=== PATIENT | female | born 1945 | race Caucasian/White ===

== ENCOUNTER 2019-11-15 12:35 | Emergency (ER) | payer MEDICARE, SELFPAY ==
--- NOTE | ~2019-11-15 | XR_ITS ---
EXAMINATION: XR wrist RT min 3V DATE: 11/15/2019 13:04 INDICATION: Right wrist pain TECHNIQUE: Posteroanterior, ulnar deviation, oblique, and lateral views of the right wrist were obtai karin. 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 There appears be mild widening of the scapholunate interval whi ch suggests insufficiency the scapholunate ligament however there is no associated dorsal intercalate d segment instability (DISI). No fracture. Joint spaces appear relatively preserved. No erosions or p eriosteal reaction. IMPRESSION: 1. 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 Reviewed, dictated and finalized at location A. IMPRESSION: 1. 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
[2019-11-15 12:49] VITALS: BP 132/61; PULSE 80; RESP 14; TEMP 36.5; O2SAT 98
--- NOTE | 2019-11-15 12:54 | ED.GENADULT ---
HPI - General Adult General Chief complaint: Extremity Injury, Upper Stated complaint: R wrist injury Time Seen by Provider: 11/15/19 12:45 Mode of arrival: ambulatory Limitations: no limitations History of Present Illness HPI narrative: Patient is a 74-year-old female who presents to emergency department for evaluation of tender swollen left wrist noting that she did lots of vacuuming working in the yard over the last 2 days followed by moderate aching pain to the left wrist joint dorsal surface patient notes aching pain with any activity or movement. Pain radiates to the elbow at times. Patient denies other injury or trauma or similar occurrence and has not taken anything for some Related Data Home Medications Medication Instructions Recorded Confirmed hydrochlorothiazide 25 mg PO DAILY 11/15/19 metoprolol succinate 50 mg PO DAILY 11/15/19 Allergies Allergy/AdvReac Type Severity Reaction Status Date / Time atorvastatin Allergy Unknown Verified 01/30/17 15:44 Review of Systems Review of Systems: All systems reviewed & are unremarkable except as noted in HPI and below PMFSH Family History Family History (Updated 02/25/14 @ 10:16 by DOCTOR UNKNOWN) Father Cerebrovascular accident Family history of chronic obstructive pulmonary disease Family history of renal failure Family history of congestive heart failure Other Carcinoma of colon Social History Social History Smoking status: Never smoker Alcohol intake: never Exam Narrative: Exam Narrative: GENERAL: Well-appearing, well-nourished, and in no acute distress. HEAD: Normocephalic, atraumatic. EYES: PERRLA and EOMI. ENT: Nares clear, no rhinorrhea or epistaxis. Mucous membranes moist. EXTREMITIES: Slight redness and tenderness over the dorsal surface of the right wrist radial aspect wrist without other abnormalities or tenderness SKIN: Warm, dry, no rash. NEURO: No focal deficits. Alert and oriented x3. Neurovascularly intact. Capillary refill less than 2 seconds PSYCH: Normal mood and affect. Course Course Emergency Course: Patient in the room aware of case findings treatment plan and diagnosis agreeing to follow-up with primary care also provided with orthopedic follow-up. Patient hydrated in the emergency department and given anti-inflammatory Vital Signs Vital signs: Vital Signs Temperature 97.7 F 11/15/19 12:49 Pulse Rate 80 11/15/19 12:49 Respiratory Rate 14 11/15/19 12:49 Blood Pressure 132/61 11/15/19 12:49 Pulse Oximetry 98 11/15/19 12:49 Temperature 97.7 F 11/15/19 12:49 Pulse Rate 80 11/15/19 12:49 Respiratory Rate 14 11/15/19 12:49 Blood Pressure 132/61 11/15/19 12:49 Pulse Oximetry 98 11/15/19 12:49 Medical Decision Making MDM Narrative Medical decision making narrative: Patients injury or pain is consistent with musculoskeletal etiology. No signs of neurological or vascular compromise on exam. Compartments and tisues are soft without signs of compartment syndrome. Pain is felt appropriate for further evaluation on an outpatient basis. Patient with likely inflammatory arthropathy placed in thumb spica splint advised to rest elevate and ice the extremity provided with reasons to return will be placed on anti-inflammatories. Afebrile nontoxic-appearing no distress Vital Signs Vital Signs: Vital Signs Temperature 97.7 F 11/15/19 12:49 Pulse Rate 80 11/15/19 12:49 Respiratory Rate 14 11/15/19 12:49 Blood Pressure 132/61 11/15/19 12:49 Pulse Oximetry 98 11/15/19 12:49 Temperature 97.7 F 11/15/19 12:49 Pulse Rate 80 11/15/19 12:49 Respiratory Rate 14 11/15/19 12:49 Blood Pressure 132/61 11/15/19 12:49 Pulse Oximetry 98 11/15/19 12:49 Lab Data Result diagrams: 11/15/19 13:23 11/15/19 13:23 Labs: Lab Results 11/15/19 11/15/19 Range/Units 13:23 13:23 WBC
[2019-11-15] MEDS: SODIUM CHLORIDE 0.9% IV 1,000 ML 999 ML IV CONT (13:24)
[2019-11-15] MEDS: KETOROLAC 15 MG/ML VIAL (*BKC) IV PUSH (13:25)
[2019-11-15 13:33] LABS: Basophils Percent Auto 0.3 % (0.2-1.2); Eosinophils Absolute Auto 0.1 K/mm3 (0-0.3); Eosinophils Percent Auto 1.1 % (0-4.4); Hematocrit 39.2 % (37.0-47.0); Hemoglobin 12.6 g/dL (12.0-15.0); Immature Granulocyte Absolute 0.04 K/mm3 (0.00-0.031); Immature Granulocyte Percent A 0.4 % (0-0.5); Lymphocytes Percent Auto 14.3 % (18.3-44.2); Mean Corpuscular HGB Conc 32.1 g/dl (32-36); Mean Corpuscular Hemoglobin 30.3 pg (26-34); Mean Corpuscular Volume 94.2 fl (80-100); Mean Platelet Volume 9.4 fl (7.4-10.4); Monocytes Absolute Auto 0.8 K/mm3 (0.1-0.6); Neutrophils Absolute Auto 8.6 K/mm3 (1.3-6.7); Neutrophils Percent Auto 76.9 % (45.5-73.1); Platelet Count Result 358 k/mm3 (150-375); Red Blood Count 4.16 M/mm3 (4.2-5.4); Red Cell Distribution Width 12.3 % (11.5-14.5); White Blood Count 11.2 K/mm3 (4.5-10.0)
[2019-11-15 13:46] LABS: Blood Urea Nitrogen 18 mg/dL (7-17); CRP 1.7 mg/dL (<1.0); Calcium 9.3 mg/dL (8.4-10.2); Carbon Dioxide 30 mmol/L (22-30); Chloride 99 mmol/L (98-107); Estimated CRCL calculation 54 ml/min; Estimated Glomerular Filt Rate > 60; Glucose 156 mg/dL (65-105); Potassium 3.6 mmol/L (3.4-5.0); Sodium 138 mmol/L (137-145); Uric Acid 4.3 mg/dL (2.5-7.5)
[2019-11-15 13:56] LABS: Erythrocyte Sedimentation Rate 53 mm/hr (0-20)
[2019-11-15 15:13] VITALS: BP 130/70; PULSE 78; RESP 12; O2SAT 99
== END 2019-11-15 15:14 | disposition home or self-care (01) ==
PROVIDERS: Emergency Medicine Emergency Medical Services; Emergency Provider Emergency Medicine; PCP Nurse Practitioner Adult Health
DX: M25.531 Pain in right wrist (principal); M11.231 Other chondrocalcinosis, right wrist
CPT/HCPCS: 29125; 36415; 73110; 80048; 84550; 85025; 85652; 86140; 96361; 96374; 99284; J1885; J7030

== ENCOUNTER → 2020-06-12 03:07 | Outpatient (CLI) | payer MEDICARE, SELFPAY ==
[2020-06-12 18:10] LABS: SARS-CoV-2 RNA PCR Negative
== END ==
PROVIDERS: PCP Nurse Practitioner Adult Health; Visit Provider Internal Medicine Gastroenterology
DX: Z01.812 Encounter for preprocedural laboratory examination (principal); Z20.822 Contact with and (suspected) exposure to COVID-19
CPT/HCPCS: C9803; U0003; U0005

== ENCOUNTER 2020-06-15 02:16 | Day surgery (SDC) | payer MEDICARE, SELFPAY ==
[2020-06-10 11:21] VITALS: BMI 26.4
[2020-06-15 07:33] VITALS: BP 139/66; PULSE 70; RESP 16; TEMP 36; O2SAT 99; BMI 26.2
[2020-06-15] MEDS: LACTATED RINGERS 1,000 ML 150 ML IV CONT (07:46)
--- NOTE | 2020-06-15 07:56 | WPDGICN ---
Assessment and Plan Assessment and plan (1) Occult blood in stools: Code(s): R19.5 - Other fecal abnormalities Status: Acute Assessment and Plan: Patient had occult blood in stool on routine screening. Plan is for colonoscopy to assess for possible colon polyps or other pathology in the colon. Further recommendations after endoscopy. GI Consult Note Consult date/time: 06/15/20 07:56 HPI: Jeanne Acevedo is a 74 year old female Presents for screening colonoscopy. Patient had an outpatient FIT test. It was found to be positive for occult blood in stool. Patient denies any obvious blood in her stools. She denies abdominal pain. Her bowel habits are normal. She has seen no visible blood. Patient's family history is noncontributory. Patient denies any prior history of colon disease in the family. Review of Systems Review of Systems: All systems reviewed & are unremarkable except as noted in HPI and below [facility] Family History Family History (Updated 02/25/14 @ 10:16 by DOCTOR UNKNOWN) Father Cerebrovascular accident Family history of chronic obstructive pulmonary disease Family history of renal failure Family history of congestive heart failure Other Carcinoma of colon Social History Social History Smoking status: Never smoker Alcohol intake: never Substance use: never Substance use type: does not use Living arrangements: with family Spiritual care concerns: No Meds Home Medications and Allergies Home Medications Medication Instructions Recorded Confirmed Type hydrochlorothiazide 25 mg PO DAILY 11/15/19 06/10/20 History metoprolol succinate 50 mg PO DAILY 11/15/19 06/10/20 History sodium,potassium,mag sulfates 17.5 See Rx Instructions PO .COMPLEX 06/09/20 Rx gram-3.13 gram-1.6 gram oral soln #354 ml Allergies Allergy/AdvReac Type Severity Reaction Status Date / Time atorvastatin Allergy Unknown Dizziness Verified 06/15/20 07:32 Vital Signs Vital Signs - 24 hr 06/15/20 07:33 Temperature 96.8 F L Pulse Rate 70 Respiratory Rate 16 Blood Pressure 139/66 Pulse Oximetry 99 Exam Narrative: Exam Narrative: Physical exam reveals patient to be alert. Vital signs stable. HEENT exam unremarkable. Patient is anicteric. Lungs are clear to auscultation and percussion. Heart is without murmur or extra sounds. Abdominal exam bowel sounds are present soft nontender with no organomegaly. Digital external rectal exam is normal.
--- NOTE | 2020-06-15 08:21 | WPDANESEPPF ---
Anes - Initial Pre Proc Eval Procedure: Operation Date: 06/15/20 09:00 Proposed Procedures p Colonoscopy - Clem Ren MD Date/Time: 06/15/20 08:21 Surgeon: Clem Ren MD Pre Op Diagnosis: Occult GI Bleeding Patient Data Age: 74 Gender: F Height: 1.63 m Weight: 69.3 kg Last Vital Signs Temp 36.0 C L 06/15/20 07:33 Pulse 70 06/15/20 07:33 Resp 16 06/15/20 07:33 BP 139/66 06/15/20 07:33 Pulse Ox 99 06/15/20 07:33 Allergies Allergy/AdvReac Type Severity Reaction Status Date / Time atorvastatin Allergy Unknown Dizziness Verified 06/15/20 07:32 Home Medications Medication Instructions Recorded Confirmed Type hydrochlorothiazide 25 mg PO DAILY 11/15/19 06/10/20 History metoprolol succinate 50 mg PO DAILY 11/15/19 06/10/20 History sodium,potassium,mag sulfates 17.5 See Rx Instructions PO .COMPLEX 06/09/20 Rx gram-3.13 gram-1.6 gram oral soln #354 ml Patient hx anesthesia problems: none Family hx anesthesia problems: none PMFSH Past Medical History Medical History (Updated 06/15/20 @ 08:24 by Aldo Sims MD) HTN (hypertension) Family History Family History (Updated 02/25/14 @ 10:16 by DOCTOR UNKNOWN) Father Cerebrovascular accident Family history of chronic obstructive pulmonary disease Family history of renal failure Family history of congestive heart failure Other Carcinoma of colon Social History Social History Smoking status: Never smoker Alcohol intake: never Substance use: never Substance use type: does not use Living arrangements: with family Spiritual care concerns: No Anes - Eval Final PreProcedure Day of Procedure 06/15/20 08:21 Patient weight: overweight Heart: regular rate and rhythm Lungs: clear to auscultation and normal air movement Airway: Mallampati scale class II Neurological: alert and oriented Last oral intake: >/= 8 hours ASA classification: II Emergent: no Anesthetic plan: proceed Anesthesia type and monitoring: general GIVS Informed Consent: The patient's anesthetic plan and its attendant risks and benefits were discussed with the patient/family/POA. Questions were solicited and answers provided to the satisfaction of the patient/family/POA.
[2020-06-15 08:46] VITALS: BP 89/47; PULSE 53; RESP 16; O2SAT 97
[2020-06-15 08:56] VITALS: BP 90/50; PULSE 57; RESP 15; O2SAT 100
[2020-06-15 09:06] VITALS: BP 110/60; PULSE 62; RESP 18; O2SAT 100
== END 2020-06-15 09:16 | disposition home or self-care (01) ==
PROVIDERS: PCP Nurse Practitioner Adult Health; Visit Provider Internal Medicine Gastroenterology
PROC: 0DJD8ZZ Inspection of Lower Intestinal Tract, Via Natural or Artificial Opening Endoscopic (ICD-10-PCS; CPT 45378; principal; 2020-06-15 09:00)
DX: Z12.11 Encounter for screening for malignant neoplasm of colon (principal); R19.5 Other fecal abnormalities; D12.0 Benign neoplasm of cecum; D12.4 Benign neoplasm of descending colon; K64.8 Other hemorrhoids; I10 Essential (primary) hypertension
CPT/HCPCS: 45385; 88305; C9803; J2001; J2704; J7120; U0003; U0005

== ENCOUNTER → 2020-07-08 15:07 | Outpatient (CLI) | payer MEDICARE, SELFPAY ==
--- NOTE | ~2020-07-08 | MM_ITS ---
EXAMINATION: MM screening mickey BI w mile HISTORY: Screening TECHNIQUE: Craniocaudal and mediolateral oblique 3-D tomosynthesis images were obtained and synthetic 2-D images were generated. CAD analysis was submitted and interpreted. COMPARISON: Comparison to multiple prior studies sequentially, with oldest reviewed study dated 04/07. BREAST PARENCHYMAL COMPOSITION: There are scattered areas of fibroglandular density. FINDINGS: There is no evidence of suspicious mass, calcification, or architectural distortion to sugg est malignancy in either breast. There has been no suspicious interval change. IMPRESSION: 1. No mammographic evidence of malignancy. 2. Recommend routine screening mammography in one year. BI-RADS Category 1: Negative Reviewed, dictated and finalized at location A. 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
== END ==
PROVIDERS: PCP Family Medicine; Visit Provider Nurse Practitioner Adult Health
DX: Z12.31 Encounter for screening mammogram for malignant neoplasm of breast (principal)
CPT/HCPCS: 77063; 77067

== ENCOUNTER → 2021-08-24 10:01 | Outpatient (CLI) | payer MEDICARE, SELFPAY ==
--- NOTE | ~2021-08-24 | MM_ITS ---
EXAMINATION: MM screening mickey BI w mile HISTORY: Screening mammogram TECHNIQUE: Craniocaudal and mediolateral oblique 3-D tomosynthesis images were obtained and synthetic 2-D images were generated. CAD analysis was submitted and interpreted. COMPARISON: 08/04/2020, , 01/08/2016 bilateral screening mammogram examinations BREAST PARENCHYMAL COMPOSITION: There are scattered areas of fibroglandular density. FINDINGS: There is no evidence of suspicious mass, calcification, or architectural distortion to sugg est malignancy in either breast. There has been no suspicious interval change. IMPRESSION: 1. No mammographic evidence of malignancy. 2. Recommend routine screening mammography in one year. BI-RADS Category 1: Negative Reviewed, dictated and finalized at location A.
== END ==
PROVIDERS: PCP Nurse Practitioner Adult Health; Visit Provider Nurse Practitioner Adult Health
DX: Z12.31 Encounter for screening mammogram for malignant neoplasm of breast (principal)
CPT/HCPCS: 77063; 77067

== ENCOUNTER → 2022-11-28 11:59 | Outpatient (CLI) | payer MEDICARE, SELFPAY ==
--- NOTE | ~2022-11-28 | MM_ITS ---
EXAMINATION: MM screening mickey BI w mile HISTORY: Screening mammogram, family history of breast cancer in her sister. TECHNIQUE: Craniocaudal and mediolateral oblique 3-D tomosynthesis images were obtained and synthetic 2-D images were generated. CAD analysis was submitted and interpreted. COMPARISON: 08/24/2021, 07/08/2020, 06/21/2018 BREAST PARENCHYMAL COMPOSITION: There are scattered areas of fibroglandular density. FINDINGS: No suspicious mass, calcification, or architectural distortion are identified in either akanksha ast to suggest malignancy. There has been no suspicious interval change. IMPRESSION: 1. No mammographic evidence of malignancy. 2. Recommend routine screening mammography in one year. BI-RADS Category 1: Negative Reviewed, dictated and finalized at location A.
== END ==
PROVIDERS: PCP Nurse Practitioner Adult Health; Visit Provider Nurse Practitioner Adult Health
DX: Z12.31 Encounter for screening mammogram for malignant neoplasm of breast (principal)
CPT/HCPCS: 77063; 77067

== ENCOUNTER 2023-09-27 14:29 | Outpatient (CLI) | payer MEDICARE, SELFPAY ==
[2023-09-27 20:03] LABS: Basophils Percent Auto 0.5 % (0.2-1.2); Eosinophils Absolute Auto 0.1 K/mm3 (0-0.3); Hematocrit 39.7 % (37.0-47.0); Hemoglobin 12.7 g/dL (12.0-15.0); Immature Granulocyte Absolute 0.02 K/mm3 (0.00-0.031); Immature Granulocyte Percent A 0.3 % (0-0.5); Lymphocytes Absolute Auto 2.33 K/mm3 (0.9-3.2); Lymphocytes Percent Auto 35.9 % (18.3-44.2); Mean Corpuscular Hemoglobin 30.2 pg (26-34); Mean Corpuscular Volume 94.5 fl (80-100); Mean Platelet Volume 9.9 fl (7.4-10.4); Monocytes Absolute Auto 0.5 K/mm3 (0.1-0.6); Monocytes Percent Auto 7.6 % (2.6-8.5); Neutrophils Absolute Auto 3.5 K/mm3 (1.3-6.7); Neutrophils Percent Auto 53.7 % (45.5-73.1); Platelet Count Result 373 k/mm3 (150-375); Red Cell Distribution Width 12.8 % (11.5-14.5); White Blood Count 6.5 K/mm3 (4.5-10.0)
[2023-09-27 20:18] LABS: Alanine Aminotransferase 15 U/L (6-35); Albumin Level 4.6 g/dL (3.5-5.1); Alkaline Phosphatase 98 U/L (38-126); Anion Gap 8 mmol/L (4-12); Aspartate Amino Transferase 48 U/L (14-36); Bilirubin,Total 0.7 mg/dL (0.2-1.3); Blood Urea Nitrogen 20 mg/dL (7-17); Calcium 9.4 mg/dL (8.4-10.2); Carbon Dioxide 29 mmol/L (22-30); Chloride 103 mmol/L (98-107); Cholesterol 226 mg/dL (0-200); Estimated Glomerular Filt Rate > 60; Glucose 92 mg/dL (65-110); HDL Direct 50 mg/dL; Potassium 3.9 mmol/L (3.4-5.0); Sodium 140 mmol/L (137-145); Triglycerides 107 mg/dL (<150)
[2023-09-27 20:29] LABS: LDL Cholesterol Direct 129 mg/dL
== END 2023-09-27 14:30 | disposition home or self-care (01) ==
LOC: ANHBWCLAB 14:30
PROVIDERS: PCP Nurse Practitioner Adult Health; Visit Provider Nurse Practitioner Adult Health
DX: I10 Essential (primary) hypertension (principal)
CPT/HCPCS: 36415; 80053; 80061; 83735; 84443; 85025

== ENCOUNTER 2023-11-29 11:20 | Outpatient (CLI) | payer MEDICARE, SELFPAY ==
--- NOTE | ~2023-11-29 | MM_ITS ---
EXAMINATION: MM screening mickey BI w mile HISTORY: Screening TECHNIQUE: Craniocaudal and mediolateral oblique 3-D tomosynthesis images were obtained and synthetic 2-D images were generated. CAD analysis was submitted and interpreted. COMPARISON: Comparison to multiple prior studies sequentially, with oldest reviewed study dated 06/2015. BREAST PARENCHYMAL COMPOSITION: Not dense: There are scattered areas of fibroglandular density. FINDINGS: There is no evidence of suspicious mass, calcification, or architectural distortion to sugg est malignancy in either breast. There has been no suspicious interval change. IMPRESSION: 1. No mammographic evidence of malignancy. 2. Recommend routine screening mammography in one year. BI-RADS Category 1: Negative Reviewed, dictated and finalized at location B.
== END 2023-11-29 11:21 | disposition home or self-care (01) ==
PROVIDERS: PCP Nurse Practitioner Adult Health; Visit Provider Nurse Practitioner Adult Health
DX: Z12.31 Encounter for screening mammogram for malignant neoplasm of breast (principal)
CPT/HCPCS: 77063; 77067

== ENCOUNTER 2023-12-15 15:31 | Emergency (ER) | payer MEDICARE, SELFPAY ==
[2023-12-15 15:36] VITALS: BP 124/66; PULSE 80; RESP 16; TEMP 36.2; O2SAT 99
--- NOTE | 2023-12-15 15:50 | ED.SKABFB ---
HPI - Skin/Abscess/Foreign Bdy General Chief complaint: Skin/Abscess/Foreign Body Stated complaint: Rash Time Seen by Provider: 12/15/23 15:50 Source: patient Mode of arrival: ambulatory Limitations: no limitations History of Present Illness HPI narrative: 78 y/o female presents with complaints of an itchy rash; onset 3 days ago. She states the rash started on her trunk and has spread all over her body. Rash spares face. She has been taking Benadryl for the itching. Denies pain or drainage to the rash. Denies lip, tongue, or throat swelling, shortness of breath or wheezing. Denies changes to soap, detergent, lotion, or any other exposures. No one else in the house or any contacts with similar symptoms. Related Data Allergies Allergy/AdvReac Type Severity Reaction Status Date / Time atorvastatin Allergy Unknown Dizziness Verified 09/27/23 13:39 Review of Systems Review of Systems: CONSTITUTIONAL: Denies body aches, fever, chills, or sweats. EYES: Denies visual changes, redness, or discharge. ENT: Denies rhinorrhea or congestion. CARDIOVASCULAR: Denies chest pain, palpitations, or edema. RESPIRATORY: Denies cough or dyspnea. GASTROINTESTINAL: Denies abdominal pain, nausea, vomiting, or diarrhea. SKIN: Reports rash. Denies open wounds or discharge. MUSCULOSKELETAL: Denies back pain, joint pain, or myalgia. NEUROLOGIC: Denies headache, numbness, tingling, or weakness. [facility] Past Medical History Medical History HTN (hypertension) Family History Family History Father Cerebrovascular accident Family history of chronic obstructive pulmonary disease Family history of renal failure Family history of congestive heart failure Mother Carcinoma of colon Heart disease Sibling Breast cancer Hypertension Heart disease A-Fib Grandparent Heart disease Grandparent Heart disease Social History Social History Smoking status: Never smoker Alcohol intake: never Substance use: never Substance use type: does not use Do You Feel Safe in your Home?: Yes Lack of Transportation: No Lack of Food: Never True Current Housing: I Have Housing Concerned About Future Housing: No Difficulty Paying Gas/Electric Bills: No Difficulty Paying for Meds: No Currently Unemployed: No Education: Master's Degree or Higher Difficulty w/ Childcare or Family Care: No Living arrangements: with family Occupation/Education: retired Gender identity (if verbalized by the patient): Female Spiritual care concerns: No Agree to blood products: Yes Comments At time of signature, I have reviewed and agree with nursing past medical, surgical, social and family history unless otherwise noted. Please see nursing chart for further information. There is no relevant family history pertinent to the presenting complaint Exam Narrative: GENERAL: Well-appearing. No apparent distress. EYES: Conjunctivae clear and EOMI.. NECK: Supple. No lymphadenopathy CHEST: Clear to auscultation. HEART: Regular rate and rhythm. SKIN: Warm and dry. Diffuse maculopapular rash to the upper/lower extremities and torso. Rash spares the face. No discharge, pain, or fluctuance. No ulcerations, or necrosis. NEURO: Alert and oriented x3. Course Course Emergency Course: Patient is aware of diagnosis, understands and agrees to treatment plan. Anticipatory guidance given. Patient agrees to follow-up as directed and is aware of reasons to seek care at the emergency department. Portions of this record may have been created with voice recognition software Level of Care: Express Care Visit Vital Signs Vital signs: Vital Signs Temperature 97.2 F L 12/15/23 15:36 Pulse Rate 80 12/15/23 15:36 Respiratory Rate 16 12/15/23 15:36 Blood Pressure 124/66
== END 2023-12-15 16:04 | disposition home or self-care (01) ==
PROVIDERS: Emergency Provider Nurse Practitioner Family; PCP Nurse Practitioner Adult Health
DX: L25.9 Unspecified contact dermatitis, unspecified cause (principal); I10 Essential (primary) hypertension
CPT/HCPCS: 99213; G0463

== ENCOUNTER 2024-11-29 07:41 | Outpatient (CLI) | payer MEDICARE, SELFPAY ==
--- NOTE | ~2024-11-29 | MM_ITS ---
EXAMINATION: MM screening mickey BI w mile HISTORY: Screening TECHNIQUE: Craniocaudal and mediolateral oblique 3-D tomosynthesis images were obtained and synthetic 2-D images were generated. CAD analysis was submitted and interpreted. COMPARISON: Comparison to multiple prior studies sequentially, with oldest reviewed study dated 06/2015. BREAST PARENCHYMAL COMPOSITION: Not dense: There are scattered areas of fibroglandular density. FINDINGS: There is no evidence of suspicious mass, calcification, or architectural distortion to sugg est malignancy in either breast. There has been no suspicious interval change. IMPRESSION: 1. No mammographic evidence of malignancy. 2. Recommend routine screening mammography in one year. BI-RADS Category 1: Negative Reviewed, dictated and finalized at location A.
--- OUTSIDE RECORDS SUMMARY | 2024-11-29 07:44 | XMS_ITS | Referral Summary ---
Author Organization [facility] [place] [address] Address [address] [place] [address] Care Team Providers Care Geometry Professor Name Role Phone Meredith Ruff NP Primary Care Provider [phone] Allergies No known active allergies Medications hydroCHLOROthia zide (HYDRODIURIL) 25 mg tablet Take 25 mg by mouth daily 08/25/2018 Active metoprolol XL (TOPROL-XL) 50 mg 24 hr tablet Take 50 mg by mouth daily 08/25/2018 Active ramipril (ALTACE) 2.5 mg capsule Take 2.5 mg by mouth daily Active furosemide (LASIX) 20 mg tablet Take 20 mg by mouth 2 (two) times a day Take one tab three times weekly (Mon, Wed, Fri) Active aspirin 81 mg enteric coated tablet Take 81 mg by mouth daily Active carvedilol (COREG) 3.125 mg tablet Take 3.125 mg by mouth 2 (two) times a day with meals Active nitroglycerin (NITROSTAT) 0.[address] 0.4 mg under the tongue every 5 (five) minutes as needed for chest pain Active Social History Tobacco Use Types Packs/Day Years Used Date Smoking Tobacco: Never Smokeless Tobacco: Never Alcohol Use Standard Drinks/Week Comments Never 0 (1 standard drink = 0.6 oz pur e alcohol) AUDIT-C Answer Date Recorded Frequency of Alcohol Consumption Never 08/28/2018 Average Number of Drinks Not on file 019 Frequency of Binge Drinking Not on file 08/07 Personal Safety Answer Date Recorded Getting School Help Needed Not on file 07/02 Comments Unknown Sex and Gender Information Value Date Recorded Sex Assigned at Not on file 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 Gender Identity Not on file Sexual Orientation Not on file Last Filed Vital Signs Vital Sign Reading Time Taken Comments Blood Pressure 112/62 08/28/2018 3:32 PM CDT Pulse 75 08/28/2018 3:32 PM CDT Temperature - - Respiratory Rate - - Oxygen Saturation 97% 08/28/2018 3:32 PM CDT Inhaled Oxygen Concentration - - Weight 73.5 kg (162 lb) 08/28/2018 3:32 PM CDT Height 165.1 cm (5' 5) 06/24/2021 7:32 AM METAL CEILING BUILDER Body Mass Index 27.81 08/28/2018 3:32 PM CDT Plan of Treatment Not on file Insurance [facility] AETNA MEDICARE Care Teams Geometry Professor Relationship Specialty Start Date End Date Meredith Ruff NP PCP - General Nurse Practitioner 07/03/18
--- OUTSIDE RECORDS SUMMARY | 2024-11-29 07:44 | XMS_ITS | Clinical Summary ---
Author Organization [facility] Address [address] [place] [address] Care Team Providers Care Dry Man Name Role Phone Meredith Ruff JUHI-OPERATING MANAGER Primary Care Provider + Source Comments [facility],non-owned Affiliates and Associated Physician Practices is amultiple site organization consisting of ambulatory clinics and hospital sitesin [place], [place], [place]. This disclosure is being madepursuant to the Care Everywhere program and may not contain all information available regarding this patient. Last updated 18.[facility] Allergies No known active allergies Medications * Be aware that medications may not be up to date on this document. Alwaysverify current medications with the patient. hydroCHLOROthiaz kenji (HYDRODIURIL) 25 MG tablet Take 25 mg by mouth once daily 08/25/2018 Active metoprolol succinate XL 24hr (TOPROL XL) 50 MG tablet Take 50 mg by mouth once daily 08/25/2018 Active predniSONE (DELTASONE) 20 MG tablet 60mg po qd x5days, 40mg po qd x5days, 20mg po x5days 30 tablet 12/24/2020 Active Family History Medical History Relation Name Comments COPD - Chronic Obstructive Pulmonary Disease Father lived to 93 years Cancer - Prostate Father COPD - Chronic Obstructive Pulmonary Disease Mother lived to 92 years Cancer - Colon Mother Relation Name Status Comments Father Mother Social History Tobacco Use Types Packs/Day Years Used Date Smoking Tobacco: Never Smokeless Tobacco: Never Comments No Sex and Gender Information Value Date Recorded Sex Assigned at Not on file 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 Gender Identity Not on file Sexual Orientation Not on file Last Filed Vital Signs Vital Sign Reading Time Taken Comments Blood Pressure 112/58 12/24/2020 12:24 PM CDT Pulse 70 12/24/2020 12:24 PM CDT Temperature 37.1 C (98.8 F) 12/24/2020 12:24 PM CDT Respiratory Rate 16 12/24/2020 12:24 PM CDT Oxygen Saturation 96% 12/24/2020 12:24 PM CDT Inhaled Oxygen Concentration - - Weight 65.8 kg (145 lb) 12/24/2020 12:24 PM CDT Height 162.6 cm (5' 4) 12/24/2020 12:24 PM CDT Body Mass Index 24.89 12/24/2020 12:24 PM CDT Plan of Treatment Health Maintenance Due Date Last Done Comments BONE DENSITY TESTING 1945 HEPATITIS C SCREENING 08/11/1965 DTAP/TDAP/TD VACCINES (1 - Tdap) 08/15/1966 PNEUMOCOCCAL VACCINE 50+ (1 of 1 - PCV) 08/15/1997 ZOSTER VACCINE (1 of 2) 08/15/1997 Respiratory Syncytial Virus (RSV) Vaccine Pt: or over 60 yrs (1 - 1-dose 75+ series) 08/15/2022 COVID-19 VACCINE (3 - season) 2024 07/17/2020, 06/26/2020 DEPRESSION SCREENING 05/08/2024 INFLUENZA VACCINE (#1) 2025 , 01/11/2019, 02/24/2017, Additional history exists HEPATITIS B VACCINE Aged Out No longe r eligible based on patient's age to complete this topic HIB VACCINE Aged Out No longer eligi ble based on patient's age to complete this topic HPV VACCINE Aged Out No longer eligi ble based on patient's age to complete this topic MENINGOCOCCAL (Group B) VACCINE SHARED DECISION-MAKING Aged Out No longer eligible based on patient's age to complete this topic MENINGOCOCCAL GROUPS A/C/Y/W VACCINE Aged Out No longer eligible based on patient's age to complete this topic Insurance [employer] MEDICARE AETNA AETNA Care Teams Dry Man Relationship Specialty Start Date End Date Meredith Ruff APRN-CNP [address] [id number] PCP - General 06/19/20
--- OUTSIDE RECORDS SUMMARY | 2024-11-29 07:45 | XMS_ITS | Clinical Summary ---
Author Organization [facility] [address] Address [address] [place] [address] Care Team Providers Care Emergency Service Worker Name Role Phone Meredith Ruff NP Primary Care Provider Allergies No known active allergies Medications hydroCHLOROthia [...] minutes as needed for chest pain Active Medical History Medical History Date Comments Hypertension MVP (mitral valve prolapse) Family History Medical History Relation Name Comments Diabetes Brother 1 Heart disease Brother 1 Hyperlipidemia Brother 1 Heart attack Brother 2 Hyperlipidemia Brother 2 COPD Father Heart attack Mother Hyperlipidemia Mother Breast cancer Sister 2 Relation Name Status Comments Brother 1 (Age 63) Brother 2 Alive Father (Age 90) Mother (Age 92) Sister 1 Alive Sister 2 Alive Sister 3 Alive Social History Tobacco Use Types Packs/Day Years [...] on file Legal Sex Female 7:05 PM [employer] Gender Identity Not on file Sexual Orientation Not on file Obstetrics History Last Filed Vital Signs Vital Sign Reading Time Taken Comments Blood Pressure 112/62 08/28/2018 3:32 PM CDT Pulse 75 08/28/2018 3:32 PM CDT Temperature - - Respiratory Rate - - Oxygen Saturation 97% 08/28/2018 3:32 PM CDT Inhaled Oxygen Concentration - - Weight 73.5 kg (162 lb) 08/28/2018 3:32 PM CDT Height 165.1 cm (5' 5) 06/24/2021 7:32 AM [employer] Body Mass Index 27.81 08/28/2018 3:32 PM CDT Plan of Treatment Health Maintenance Due Date Last Done Comments Depression Screening 1945 Fall Risk Assessment 1945 Hepatitis C Screening 1945 Osteoporosis Screening-Bone Density Scan 1945 Well Visit 65+ 08/15/2012 Pneumococcal vaccine 65+ (2 of 2 - PPSV23) 05/31/2019 05/31/2018 Covid-19 Vaccine (4 - 2023-2 5 season) 2024 02/01/2021, 07/17/2020, 06/26/2020 Influenza Vaccine (#1) 2025 , 01/17/2020, 01/11/2019, Additional history exists DTaP/Tdap/Td Vaccine (2 - Td or Tdap) 05/18/2028 05/18/2018 Hepatitis B Screening Completed 09/12/2005 , 03/14/2005, 02/11/2005 Zoster Vaccine Completed 03/17/2020, 01/23/2020 Insurance [facility] [employer] Care Teams Emergency Service Worker Relationship Specialty Start Date End Date Meredith Ruff NP PCP - General Nurse Practitioner 07/03/18
== END 2024-11-29 07:42 | disposition home or self-care (01) ==
LOC: CHSIMG 07:42
PROVIDERS: PCP Nurse Practitioner Adult Health; Visit Provider Nurse Practitioner Adult Health
DX: Z12.31 Encounter for screening mammogram for malignant neoplasm of breast (principal)
CPT/HCPCS: 77063; 77067